=== PATIENT | male | born 1975 | race Caucasian/White ===

== ENCOUNTER 2018-04-04 07:42 | Emergency (ER) | payer MEDICAID ==
[~2018-04-04] VITALS: Ht 182.9 cm; Wt 120.0 kg
[2018-04-04] MEDS ORDERED: ASPIRIN 81 MG TABLET CHEW ONE (08:11)
[2018-04-04] MEDS ORDERED: KETOROLAC 30 MG/1 ML ONE (08:11)
[2018-04-04] MEDS ORDERED: ASPIRIN 81 MG TABLET CHEW PO ONE (08:30)
[2018-04-04] MEDS ORDERED: KETOROLAC 30 MG/1 ML IM ONE (08:30)
[2018-04-04 09:05] LABS: BASOPHILS # (AUTO) 0.03 x10^3/uL (0-0.1); BASOPHILS % (AUTO) 0 % (0-1); EOSINOPHILS # (AUTO) 0.26 x10^3/uL (0-0.4); EOSINOPHILS % (AUTO) 3 % (1-7); LYMPHOCYTES # (AUTO) 3.17 x10^3/uL (1-3.4); LYMPHOCYTES % (AUTO) 35 % (22-44); MD NO; MEAN CORPUSCULAR HEMOGLOBIN 30.8 pg (27.5-34.5); MEAN CORPUSCULAR HGB CONC 34.3 g/dL (33.2-36.2); MEAN CORPUSCULAR VOLUME 89.8 fL (81-97); MEAN PLATELET VOLUME 8.1 fL (7.4-10.4); MONOCYTES # (AUTO) 0.65 x10^3/uL (0.2-0.8); MONOCYTES % (AUTO) 7 % (2-9); NEUTROPHILS # (AUTO) 5.06 x10^3/uL (1.8-6.8); NEUTROPHILS % (AUTO) 55 % (42-75); PLATELET COUNT 271 x10^3/uL (130-400); RED BLOOD COUNT 5.38 x10^6/uL (4.38-5.82); RED CELL DISTRIBUTION WIDTH 13.2 % (9.4-14.8)
[2018-04-04 09:16] LABS: ALBUMIN 3.7 g/dL (3.4-5.0); ANION GAP 8 mmol/L (5-15); CHLORIDE 110 mmol/L (98-107); CREATININE 0.88 mg/dL (0.7-1.3)
[2018-04-04 09:19] LABS: TROPONIN I < 0.015 ng/mL (0.000-0.045)
[2018-04-04] MEDS ORDERED: SODIUM CHLORIDE FLUSH 10ML SYR IVF ONE (10:00)
[2018-04-04 11:29] VITALS: BP 133/81
[2018-04-04] MEDS ORDERED: OMNIPAQUE 350 MG/ML, 100ML BOTTLE ONE (11:56)
== END 2018-04-04 11:31 | disposition home or self-care (01) ==
LOC: ED 09:44
DX: R07.9 Chest pain, unspecified (principal); M94.0 Chondrocostal junction syndrome [Tietze]; R10.10 Upper abdominal pain, unspecified; E66.9 Obesity, unspecified
CPT/HCPCS: 36415; 71045; 71275; 80048; 82040; 84484; 85025; 85379; 93005; 96372; 99285; J1885; Q9967

== ENCOUNTER 2019-09-10 02:23 | Emergency (ER) | payer SELFPAY ==
[~2019-09-10] VITALS: Ht 175.3 cm; Wt 118.0 kg
--- NOTE | 2019-09-10 02:50 | NUR ---
PT BACK TO ROOM.
[2019-09-10] MEDS ORDERED: ALBUTEROL/IPRATROPIUM 2.5MG/0.5MG, 3 ML NPPB ONE (03:00)
--- NOTE | 2019-09-10 03:01 | NUR ---
PT REPORTS PRODUCTIVE COUGH FOR x1 DAYS WITH SOB. NO FEVER, BODY ACHES REPORTED. PT SAT 94% RA, COUGHS WITH DEEP INSPIRATION. PT 1 PACK/DAY SMOKER.
[2019-09-10] MEDS ORDERED: ALBUTEROL/IPRATROPIUM 2.5MG/0.5MG, 3 ML ONE (03:15)
[2019-09-10 03:42] LABS: RAPID INFLUENZA A Negative (Negative); RAPID INFLUENZA B Negative (Negative)
[2019-09-10 04:53] VITALS: BP 112/74
== END 2019-09-10 05:01 | disposition home or self-care (01) ==
LOC: ED 04:00
DX: J06.9 Acute upper respiratory infection, unspecified (principal); F17.210 Nicotine dependence, cigarettes, uncomplicated
CPT/HCPCS: 71046; 87400; 94640; 99284; J7512; J7620

== ENCOUNTER 2020-04-18 02:01 | Emergency (ER) | payer SELFPAY ==
[~2020-04-18] VITALS: Ht 180.3 cm; Wt 121.6 kg
[2020-04-18 02:04] VITALS: BP 130/75
[2020-04-18] MEDS ORDERED: KETOROLAC 60 MG/2 ML ONE (02:23)
[2020-04-18] MEDS ORDERED: KETOROLAC 30 MG/1 ML IM ONE (02:30)
== END 2020-04-18 03:24 | disposition home or self-care (01) ==
LOC: ED 02:31
DX: S16.1XXA Strain of muscle, fascia and tendon at neck level, initial encounter (principal); R20.0 Anesthesia of skin; F17.200 Nicotine dependence, unspecified, uncomplicated; M54.12 Radiculopathy, cervical region; X58.XXXA Exposure to other specified factors, initial encounter; Y93.89 Activity, other specified; Y92.89 Other specified places as the place of occurrence of the external cause; Y99.8 Other external cause status
CPT/HCPCS: 96372; 99283; J1885

== ENCOUNTER 2020-11-09 14:40 | Emergency (ER) | payer SELFPAY ==
[~2020-11-09] VITALS: Ht 180.3 cm; Wt 124.4 kg
[2020-11-09 14:50] VITALS: BP 133/90
[2020-11-09] MEDS ORDERED: LIDOCAINE-MPF 1%, 5ML INFIL ONE (15:30)
[2020-11-09] MEDS ORDERED: LIDOCAINE-MPF 1%, 5ML ONE (15:45)
--- NOTE | 2020-11-09 16:50 | NUR ---
Patient given discharge instructions and they have confirmed that they understand the instructions. Patient ambulatory with steady gait.
== END 2020-11-09 17:15 | disposition home or self-care (01) ==
LOC: ED 15:14
DX: S61.412A Laceration without foreign body of left hand, initial encounter (principal); Z72.9 Problem related to lifestyle, unspecified; F17.210 Nicotine dependence, cigarettes, uncomplicated; W25.XXXA Contact with sharp glass, initial encounter; Y93.89 Activity, other specified; Y92.009 Unspecified place in unspecified non-institutional (private) residence as the place of occurrence of the external cause; Y99.8 Other external cause status
CPT/HCPCS: 12042; 99284

== ENCOUNTER 2021-04-02 16:49 | Emergency (ER) | payer SELFPAY ==
[~2021-04-02] VITALS: Ht 177.8 cm; Wt 125.8 kg
[2021-04-02 16:52] VITALS: BP 156/84
[2021-04-02] MEDS ORDERED: HYDROcodone/APAP 5/325 TABLET PO ONE (18:00)
[2021-04-02] MEDS ORDERED: HYDROcodone/APAP 5/325 TABLET ONE (18:07)
== END 2021-04-02 18:15 | disposition home or self-care (01) ==
LOC: ED 18:00
DX: K02.9 Dental caries, unspecified (principal)
CPT/HCPCS: 99283